=== PATIENT | male | born 1995 | race Two or more races ===

== ENCOUNTER 2020-01-16 12:34 | Emergency (ER) | payer MEDICAID, SELFPAY ==
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
[2020-01-16 13:03] VITALS: BP 148/77; PULSE 82; RESP 16; TEMP 37.2; O2SAT 98; BMI 38.7
== END 2020-01-16 13:53 | disposition home or self-care (01) ==
PROVIDERS: Nurse Practitioner Primary Care; Emergency Provider Emergency Medicine
DX: J06.9 Acute upper respiratory infection, unspecified (principal); R05 Cough; J34.89 Other specified disorders of nose and nasal sinuses; Z20.828 Contact with and (suspected) exposure to other viral communicable diseases; Z79.899 Other long term (current) drug therapy
CPT/HCPCS: 99283; 99284; U0003

== ENCOUNTER 2020-08-05 04:20 | Emergency (ER) | payer MEDICAID, SELFPAY ==
[2020-08-05 04:27] VITALS: BP 131/77; PULSE 110; RESP 20; TEMP 36.8; O2SAT 96; BMI 39.2
[2020-08-05 07:06] VITALS: BP 122/71; PULSE 89; RESP 16; TEMP 37.2; O2SAT 97
[2020-08-05 08:12] VITALS: BP 118/65; PULSE 78; RESP 20; TEMP 37.1; O2SAT 96
[2020-08-05] MEDS: predniSONE 20 MG TABLET 60 MG PO (09:32)
--- NOTE | 2020-08-05 17:15 | ED_ITS ---
HPI - URI/Sore Throat General Chief Complaint: Upper Respiratory Symptoms Stated Complaint: upper respiratory symptoms Time Seen by Provider: 08/05/20 07:56 Source: patient Mode of arrival: ambulatory Limitations: no limitations History of Present Illness HPI Narrative: 25-year-old male who presents emergency department for evaluation of nausea without vomiting and cough. Patient does have history of asthma. Pat ient states that he has had a cough which is productive of thick, yellow sputum with no blood in the sputum. He states that he is having tightness in his chest, he points to the center of his chest and states that the pain is worse with coughing, breathing and movement, the pain is moderate intensity. Patient has felt hot at home but did not take his temperature, he denied chills. States he is having body pain. He denied diarrhea or loss of sense of taste or smell. Patient states he had a COVID-19 infection approximately 1-1/2 months prior. Patient has been using his albuterol inhaler every 2 hours with no relief symptoms. He states that he was on a course of steroids approximately 1 month prior. Related Data Previous Rx's Medication Instructions Recorded albuterol sulfate 2 puff INHALATION Q4-6H PRN #18 g 01/16/20 azithromycin [Zithromax Z-Isidro] 250 mg PO DAILY 5 Days #6 tab 01/16/20 prednisone 60 mg PO DAILY 3 Days #9 tab 01/16/20 albuterol sulfate 2 puff INHALATION Q4-6H PRN #8.5 g 08/05/20 prednisone 60 mg PO DAILY 7 Days #21 tab 08/05/20 Allergies Allergy/AdvReac Type Severity Reaction Status Date / Time No Known Allergies Allergy Verified 08/05/20 04:32 Review of Systems Review of Systems: Yes all other systems are reviewed and are negative [facility] Past Medical History [facility] Narrative: Past medical history : Asthma. Past surgical history: None . Social history: Patient does smoke cigars 2 to 3 times a week, he occasionally drinks alcohol, he denies drug use. Medical History (Updated 08/05/20 @ 09:11 by Juan Miguel Parker MD) No known health problems Social History Social History Alcohol intake: current Alcohol intake frequency: holidays/special occasions only Patient Tobacco Use Status: Never used Tobacco Use of substances other than those prescribed or required for medical reasons: No Advance Directives: No Physical Exam Vital Signs: Vital Signs: Last Vital Signs Temp 98.8 F 08/05/20 08:12 Pulse 78 08/05/20 08:12 Resp 20 08/05/20 08:12 BP 118/65 08/05/20 08:12 Pulse Ox 96 08/05/20 08:12 Body Mass Index 39.2 Const: General: cooperative and healthy appearing Orientation/consciousness: oriented to person and oriented to place Limitations: no limitations HENMT: Head: Yes normal to inspection, Yes normocephalic and Yes atraumatic Ears: external ears normal General nose exam: Normal external nose present Face and sinus: Yes normal facial exam Mouth: Normal oral and palatal mucosa present Throat: Yes posterior oropharynx normal Eyes: General: appearance normal, both eyes and all related structures Alignment and Position: alignment normal Periorbital: periorbital findings normal Eyelids: Yes eyelids normal Conjunctivae: conjunctivae normal Sclerae: sclerae normal Pupils: Equal, round and reactive pupils present Direct Ophthalmoscopy: normal light reflex Neck: Neck: Yes normal visual inspection and Yes supple Chest: Chest palpation & inspection: normal inspection of the chest and normal palpation of entire chest wall Resp: Effort & Inspection: normal respiratory effort and able to speak in complete sentences Auscultation: wheezes expiratory wheezes, inspiratory wheezes and throughout Cardio: Rate: regular rate Rhythm: regular rhythm Heart sounds: S1 normal heart sound present, S2 normal heart sound present and no murmurs GI: Inspection: Yes normal to inspection Palpation (GI): Soft to palpation, nontender and no guarding Auscultation: normal bowel sounds : General: Yes no CVA tenderness Back/Spine/Pelvis: Back: no CVA tenderness Cervical Spine: normal cervical lordosis Thoracic/Lumbar Spine: thoracic and lumbar spine normal to inspection Skin: General skin exam: no rashes or lesions noted Lesions: no lesions Rashes: no rashes Trauma: no lacerations or abrasions Neuro: General: oriented to person and oriented to place Cranial nerves: Yes CN's II-XII intact bilaterally and Yes Equal, round and reactive pupils present Cognition (Neuro): normal cognition Motor exam (neuro): 5/5 motor strength present throughout Extrem: General: Yes normal to inspection and Yes full ROM Psych: Appearance: grossly normal and well kempt Mental Status: mental status grossly normal Speech and movement: Normal speech and movement present Affect: normal affect Attitude: cooperative Thought process: Normal thought process present Thought content: Normal thought content present Insight: Good insight present (Psych) Judgement: Good judgement present (Psych) Course Course Course Narrative: 25-year-old male who presents emergency department for evaluation of shortness of breath, cough and pleuritic chest pain. Physical examination did reveal diffuse wheezing otherwise was unremarkable. Patient's presentation is consistent with an asthma exacerbation. Patient was started on prednisone 60 mg once a day for 7 days. He was given his 1st dose here in the emergency department. The patient was given verbal and printed instructions prior to discharge. The patient was advised to follow-up with their PCP in 2 days and to return to the emergency department if their symptoms get worse or if they develop any new symptoms that are concerning to them Discharge Plan Discharge Clinical Impression: Asthma attack Qualifiers: Asthma severity: moderate Asthma persistence: persistent Qualified Code(s): J45.41 - Moderate persistent asthma with (acute) exacerbation Patient Disposition: Home, Self-Care Instructions: Asthma (ED) Additional Instructions: You received prednisone 60 mg orally here in the emergency department. Take prednisone 20 mg pills, 3 pills once a day for 7 days. Use the albuterol inhaler, 2 puffs every 4 hours as needed for shortness of breath. Follow-up with your doctor in 2 days. Please return to the emergency department if your symptoms get worse or if you develop any symptoms that are concerning to you. Prescriptions: New prednisone 20 mg tablet 60 mg PO DAILY 7 Days Qty: 21 RF: 0 albuterol sulfate 90 mcg/actuation HFA aerosol inhaler 2 puff inhalation Q4-6H PRN (Reason: shortness of breath or wheezing) Qty: 8.5 RF: 0 No Action azithromycin [Zithromax Z-Isidro] 250 mg tablet 250 mg PO DAILY 5 Days Qty: 6 RF: 0 albuterol sulfate 90 mcg/actuation HFA aerosol inhaler 2 puff inhalation Q4-6H PRN (Reason: shortness of breath or wheezing) Qty: 18 RF: 0 prednisone 20 mg tablet 60 mg PO DAILY 3 Days Qty: 9 RF: 0 Stand Alone Forms: Work/School Release Interventions: ED Discharge Assessment Last Done: 08/05/20 09:38 Discharge Date/Time: 08/05/20 09:38
== END 2020-08-05 09:38 | disposition home or self-care (01) ==
PROVIDERS: Emergency Provider Emergency Medicine Emergency Medical Services
DX: J45.41 Moderate persistent asthma with (acute) exacerbation (principal); Z79.899 Other long term (current) drug therapy; Z86.16 Personal history of COVID-19
CPT/HCPCS: 99283; 99284

== ENCOUNTER 2021-09-09 21:34 | Emergency (ER) | payer MEDICAID, SELFPAY ==
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
[2021-09-09 21:44] VITALS: BP 163/120; PULSE 93; O2SAT 97
[2021-09-09 22:48] VITALS: BP 115/67; PULSE 80; RESP 20; TEMP 37; O2SAT 97; BMI 37.9
[2021-09-09] MEDS: Acetaminophen 325 MG TABLET 650 MG PO (22:54)
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
[2021-09-10 07:30] VITALS: BP 123/67; PULSE 63; RESP 18; TEMP 36.4; O2SAT 99
[2021-09-10] MEDS: Ketorolac Tromethamine 15 MG/ML VIAL IM (07:37)
[2021-09-10] MEDS: Lidocaine 4 % Patch ADH..PATCH 1 PATCH TRANSDERMA (08:42)
== END 2021-09-10 08:49 | disposition home or self-care (01) ==
PROVIDERS: Emergency Provider Student in an Organized Health Care Education/Training Program
DX: S20.211A Contusion of right front wall of thorax, initial encounter (principal); R07.81 Pleurodynia; Y04.2XXA Assault by strike against or bumped into by another person, initial encounter; Y93.9 Activity, unspecified; Y92.9 Unspecified place or not applicable; Y99.9 Unspecified external cause status; Z79.899 Other long term (current) drug therapy
CPT/HCPCS: 71046; 71250; 96372; 99283; 99284; J1885

== ENCOUNTER 2021-11-23 09:00 | Emergency (ER) | payer MEDICAID, SELFPAY ==
[2021-11-23 09:03] VITALS: BP 138/86; PULSE 67; RESP 16; O2SAT 97; BMI 35.1
--- NOTE | 2021-11-23 11:52 | ED_ITS ---
HPI - General Adult General Chief complaint: General Medical Stated complaint: pain from waist down Time Seen by Provider: 11/23/21 11:45 Source: patient Mode of arrival: ambulatory Limitations: no limitations History of Present Illness HPI narrative: 26-year-old male came in for evaluation of bilateral lower extremities pain. Patient's symptoms started about 4 days ago, pain or discomfort to bilateral lower extremities and the pelvic area feels like muscular cramps last for about 10 minutes, pain is intermittent comes and goes, pain is diffuse to both lower extremities, no other associated symptoms, no recent strenuous activities reported by the patient. No aggravating factor, no relieving factor. Patient declined any upper respiratory symptoms, no fever, no chills, no CP, no SOB, no abdominal pain. 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 No history of similar symptoms in the past. Related Data Previous Rx's Medication Instructions Recorded albuterol sulfate 90 mcg/actuation 2 puff inhalation Q4-6H PRN 01/16/20 aerosol inhaler shortness of breath or wheezing #18 grams azithromycin 250 mg tablet 250 mg PO DAILY 5 days #6 tabs 01/16/20 (Zithromax Z-Isidro) prednisone 20 mg tablet 60 mg PO DAILY 3 days #9 tabs 01/16/20 albuterol sulfate 90 mcg/actuation 2 puff inhalation Q4-6H PRN 08/05/20 aerosol inhaler shortness of breath or wheezing #8.5 grams prednisone 20 mg tablet 60 mg PO DAILY 7 days #21 tabs 08/05/20 ketorolac 10 mg tablet 10 mg PO Q6H PRN pain 5 days #20 09/10/21 tabs Allergies Allergy/AdvReac Type Severity Reaction Status Date / Time No Known Allergies Allergy Verified 09/09/21 22:48 Review of Systems Review of Systems: All other systems are reviewed and are negative Constitutional: Reports as per HPI and Reports no additional constitutional complaints Eyes: Reports as per HPI and Reports no additional eye complaints Reports system reviewed and no additional complaints, except as documented Cardiovascular: Reports as per HPI and Reports no additional cardiovascular complaints Respiratory: Reports as per HPI and Reports no additional respiratory complaints Gastrointestinal: Reports as per HPI and Reports no additional gastrointestinal complaints Genitourinary: Reports no additional female genitourinary complaints Musculoskeletal: Reports no additional musculoskeletal complaints Skin/Breast: Reports system reviewed and no additional complaints, except as docu Psychiatric: Reports no additional psychiatric complaints Endocrine: Reports no additional endocrine complaints Hematologic/Lymphatic: Reports no additional hematologic/lymphatic complaints Allergic/Immunologic: Reports no additional allergic/immunologic complaints Reports system reviewed and no additional complaints, except as documented and Reports Abnormal speech present [facility] Past Medical History Medical History No known health problems Social History Social History Alcohol intake: current Alcohol intake frequency: holidays/special occasions only Patient Tobacco Use Status: Never used Tobacco Advance Directives: No Advance Directives Information Provided: No Physical Exam ED Vital Signs: Vital Signs - 24 hr 11/23/21 09:03 Pulse Rate 67 Respiratory Rate 16 Blood Pressure 138/86 Pulse Oximetry 97 Oxygen Delivery Method Room Air BMI result Body Mass Index 35.1 Vital signs have been reviewed as appeared to be correct. Blood pressure normal. Heart rate normal. Respiration rate normal. Temperature normal. Oxygen saturation normal. Appearance: Alert. Oriented X3. No acute distress. Head: Normal external exam. Normocephalic. Atraumatic. No [place] signs noted. No raccoon eyes noted Eyes: PERRLA. EOMI. Conjunctiva and sclera normal. Eyelids normal. ENT: TM's Normal. Pharynx normal. Uvula midline. Moist mucous membranes. No trismus noted. No drooling noted. No muffled voice noted. Neck: Normal inspection. Neck supple. FROM. No adenopathy. Thyroid Normal. No m eningeal signs. No neck mass noted. CVS: Normal heart rate and rhythm. Heart sound normal. No murmurs noted. Pulses normal throughout. Respiratory: No respiratory distress. Painless inspiration. Breath sounds normal. No wheezes/rales/rhonchi noted. Chest nontender. No accessory muscle usage noted or decreased air movement noted. Abdomen: Soft and nontender. Bowel sounds normal in all 4 quadrants. No distention noted. No organomegaly noted. No visible injury noted. Back: No CVA tenderness. Full range of motion noted. Skin: Skin warm and dry. Normal skin color. Normal skin turgor. No r ashes/lesions/lacerations noted. Extremities: No lower extremity edema. Extremities exhibit normal range of motion. Extremities nontender. Neuro: Oriented X 3. Cranial nerve exam: II-XII are grossly intact No motor deficit. No sensory deficit. Reflexes normal. Course Course Course Narrative: 26-year-old male came in with bilateral lower extremities pain no weakness, patient has normal intact neuro exam with no weakness or numbness, workup ruled out rhabdomyolysis, DVT with unremarkable CBC and CMP patient feels slightly better with NSAIDs will discharge with recommendation of taking NSAIDs p.r.n. and rest. Patient was instructed to return if worsening of symptoms. Medical Decision Making Lab Data Result diagrams: 11/23/21 12:11/23/21 12: Labs: Lab Results 11/23/21 11/23/21 11/23/21 Range/Units 12: 12: 12:01 WBC 6.4 (4.8-10.8) X10*3/uL RBC 5.08 (4.60-5.80) X10*6/uL Hgb 15.3 (14.0-18.0) g/dl Hct 44.6 (42.0-52.0) % MCV 87.8 (80.0-98.0) fL MCH 30.1 (27.0-33.0) pg MCHC 34.3 (31.0-36.0) g/dl RDW 12.6 (11.0-16.0) % Plt Count 184 (160-400) X10*3/uL MPV 9.4 (9.4-12.4) fL Immature Gran % (Auto) 0.2 (0.0-0.4) % Neut % (Auto) 54.7 (45-73) % Lymph % (Auto) 34.1 (20-40) % [place] % (Auto) 8.0 (2-11) % Eos % (Auto) 2.4 (0-4) % Baso % (Auto) 0.6 (0-2) % Lymph # (Auto) 2.2 (1.2-4.9) X10*3/uL [place] # (Auto) 0.5 (0.1-1.2) X10*3/uL Eos # (Auto) 0.2 (0.0-0.4) X10*3/uL Baso # (Auto) 0.0 (0.0-0.2) X10*3/uL Abs Immat Gran (auto) 0.01 (0.00-0.03) X10*3/uL Absolute Neuts (auto) 3.5 (2.0-8.3) x10*3/uL Absolute Nucleated RBC 0.000 (0.0-0.012) X10*3/uL Nucleated RBC % (auto) 0.0 (0.0-0.2) /100WBC D-Dimer High Sensitivty < 150 NG/ML Sodium 140 (135-145) mmol/L Potassium 4.4 (3.3-5.1) mmol/L Chloride 104 (96-108) mmol/L Carbon Dioxide 26 (22-29) mmol/L Anion Gap 14 (12-20) BUN 17 H (9-16) mg/dL Creatinine 1.04 (0.5-1.4) mg/dL Estim Creat Clear Calc 124.0 Estimated GFR > 60 Random Glucose 100 (60-115) mg/dL Calcium 9.4 (8.4-10.2) mg/dL Total Bilirubin 0.7 (0.0-1.0) mg/dL Direct Bilirubin 0.2 (0.0-0.5) mg/dL AST 22 (5-37) U/L ALT 32 (0-40) U/L Alkaline Phosphatase 67 (39-117) U/L Total Creatine Kinase 166 (38-174) U/L Total Protein 7.2 (6.5-8.0) g/dL Albumin 4.3 (3.5-5.0) g/dL Lipase 14 (8-78) U/L Urine Color Urine Appearance Urine pH (5.0-9.0) Ur Specific [place] (1.005-1.025) Urine Protein (Neg-Trace) mg/dL Urine Glucose (UA) (Negative) mg/dL Urine Ketones (Negative) mg/dL Urine Blood (Negative) Urine Nitrite (Negative) Ur Leukocyte Esterase (Negative) Urine RBC (0-2) /HPF Urine WBC (0-5) /HPF Ur Squamous Epith Cells (0-2) /HPF Urine Bacteria (None Seen) Hyaline Casts (0-2) /LPF 11/23/21 Range/Units 12:10 WBC (4.8-10.8) X10*3/uL RBC (4.60-5.80) X10*6/uL Hgb (14.0-18.0) g/dl Hct (42.0-52.0) % MCV (80.0-98.0) fL MCH (27.0-33.0) pg MCHC (31.0-36.0) g/dl RDW (11.0-16.0) % Plt Count (160-400) X10*3/uL MPV (9.4-12.4) fL Immature Gran % (Auto) (0.0-0.4) % Neut % (Auto) (45-73) % Lymph % (Auto) (20-40) % [place] % (Auto) (2-11) % Eos % (Auto) (0-4) % Baso % (Auto) (0-2) % Lymph # (Auto) (1.2-4.9) X10*3/uL [place] # (Auto) (0.1-1.2) X10*3/uL Eos # (Auto) (0.0-0.4) X10*3/uL Baso # (Auto) (0.0-0.2) X10*3/uL Abs Immat Gran (auto) (0.00-0.03) X10*3/uL Absolute Neuts (auto) (2.0-8.3) x10*3/uL Absolute Nucleated RBC (0.0-0.012) X10*3/uL Nucleated RBC % (auto) (0.0-0.2) /100WBC D-Dimer High Sensitivty NG/ML Sodium (135-145) mmol/L Potassium (3.3-5.1) mmol/L Chloride (96-108) mmol/L Carbon Dioxide (22-29) mmol/L Anion Gap (12-20) BUN (9-16) mg/dL Creatinine (0.5-1.4) mg/dL Estim Creat Clear Calc Estimated GFR Random Glucose (60-115) mg/dL Calcium (8.4-10.2) mg/dL Total Bilirubin (0.0-1.0) mg/dL Direct Bilirubin (0.0-0.5) mg/dL AST (5-37) U/L ALT (0-40) U/L Alkaline Phosphatase (39-117) U/L Total Creatine Kinase (38-174) U/L Total Protein (6.5-8.0) g/dL Albumin (3.5-5.0) g/dL Lipase (8-78) U/L Urine Color Yellow Urine Appearance Clear Urine pH 6.0 (5.0-9.0) Ur Specific [place] 1.015 (1.005-1.025) Urine Protein Negative (Neg-Trace) mg/dL Urine Glucose (UA) Negative (Negative) mg/dL Urine Ketones Negative (Negative) mg/dL Urine Blood Negative (Negative) Urine Nitrite Negative (Negative) Ur Leukocyte Esterase Trace H (Negative) Urine RBC 0-2 (0-2) /HPF Urine WBC 0-5 (0-5) /HPF Ur Squamous Epith Cells 0-2 (0-2) /HPF Urine Bacteria None Seen (None Seen) Hyaline Casts 0-2 (0-2) /LPF Discharge Plan Discharge Clinical Impression: Myofascial pain syndrome Patient Disposition: Home, Self-Care Instructions: Musculoskeletal Pain (ED) Prescriptions: No Action azithromycin [Zithromax Z-Isidro] 250 mg tablet 250 mg PO DAILY 5 Days Qty: 6 0RF albuterol sulfate 90 mcg/actuation HFA aerosol inhaler 2 puff inhalation Q4-6H PRN (Reason: shortness of breath or wheezing) Qty: 18 0RF prednisone 20 mg tablet 60 mg PO DAILY 3 Days Qty: 9 0RF prednisone 20 mg tablet 60 mg PO DAILY 7 Days Qty: 21 0RF albuterol sulfate 90 mcg/actuation HFA aerosol inhaler 2 puff inhalation Q4-6H PRN (Reason: shortness of breath or wheezing) Qty: 8.5 0RF ketorolac 10 mg tablet 10 mg PO Q6H PRN (Reason: pain) 5 Days Qty: 20 0RF Rx Instructions: Patient received Toradol in the emergency room Referrals: Physician,None [Primary Care Provider] - Stand Alone Forms: Work/School Release
[2021-11-23] MEDS: Ibuprofen 600 MG TABLET PO (12:02)
[2021-11-23 12:06] LABS: MANUAL DIFF FLAG NO
[2021-11-23 12:08] LABS: Basophils Percent Auto 0.6 % (0-2); Eosinophils Absolute Auto 0.2 X10*3/uL (0.0-0.4); Eosinophils Percent Auto 2.4 % (0-4); Hematocrit 44.6 % (42.0-52.0); Hemoglobin 15.3 g/dl (14.0-18.0); Imm Gran Abs Auto 0.01 X10*3/uL (0.00-0.03); Imm Gran Pct Auto 0.2 % (0.0-0.4); Lymphocytes Absolute Auto 2.2 X10*3/uL (1.2-4.9); Lymphocytes Percent Auto 34.1 % (20-40); Mean Corpuscular HGB Conc 34.3 g/dl (31.0-36.0); Mean Corpuscular Hemoglobin 30.1 pg (27.0-33.0); Mean Corpuscular Volume 87.8 fL (80.0-98.0); Mean Platelet Volume 9.4 fL (9.4-12.4); Monocytes Absolute Auto 0.5 X10*3/uL (0.1-1.2); Neutrophils Absolute Auto 3.5 x10*3/uL (2.0-8.3); Neutrophils Percent Auto 54.7 % (45-73); Platelet Count 184 X10*3/uL (160-400); Red Blood Count 5.08 X10*6/uL (4.60-5.80); Red Cell Distribution Width 12.6 % (11.0-16.0); White Blood Count 6.4 X10*3/uL (4.8-10.8)
[2021-11-23 12:18] LABS: D Dimer High Sensitivity < 150 NG/ML
[2021-11-23 12:21] LABS: Appearance Urine Clear; Color Urine Yellow; Glucose Urine UA Negative (Negative); Leukocyte Esterase Urine Trace (Negative); Nitrite Urine Negative (Negative); Specific Gravity - Urine 1.015 (1.005-1.025); UMIC TRIGGER UACC YES; Urine Blood Negative (Negative); Urine Ketones Negative (Negative); Urine Protein Negative (Neg-Trace)
[2021-11-23 12:26] LABS: Bacteria Urine None Seen (None Seen); Hyaline Casts Urine 0-2 /LPF (0-2); RBC Urine 0-2 /HPF (0-2); Squamous Epithelial Cell Urine 0-2 /HPF (0-2); WBC Urine 0-5 /HPF (0-5)
[2021-11-23 12:28] LABS: Alanine Aminotransferase 32 U/L (0-40); Albumin Level 4.3 g/dL (3.5-5.0); Alkaline Phosphatase 67 U/L (39-117); Anion Gap 14 (12-20); Aspartate Amino Transferase 22 U/L (5-37); Bilirubin Direct 0.2 mg/dL (0.0-0.5); Bilirubin Total 0.7 mg/dL (0.0-1.0); Blood Urea Nitrogen 17 mg/dL (9-16); Calcium 9.4 mg/dL (8.4-10.2); Carbon Dioxide 26 mmol/L (22-29); Chloride 104 mmol/L (96-108); Estimated Glomerular Filt Rate > 60; Glucose Random 100 mg/dL (60-115); Lipase 14 U/L (8-78); Potassium 4.4 mmol/L (3.3-5.1); Sodium 140 mmol/L (135-145); Total Protein 7.2 g/dL (6.5-8.0)
== END 2021-11-23 13:59 | disposition home or self-care (01) ==
PROVIDERS: Emergency Provider Emergency Medicine
DX: G89.4 Chronic pain syndrome (principal); M79.662 Pain in left lower leg; M79.661 Pain in right lower leg
CPT/HCPCS: 36415; 80048; 80076; 81001; 82550; 83690; 85025; 85379; 99283; 99284

== ENCOUNTER 2022-08-23 12:52 | Emergency (ER) | payer MEDICAID, SELFPAY ==
--- NOTE | ~2022-08-23 | CT_ITS ---
EXAMINATION: CT ABDOMEN AND PELVIS WITH CONTRAST CLINICAL INFORMATION: Right flank/lower quadrant pain COMPARISON: None available. TECHNIQUE: Multidetector volumetric images were obtained from the superior aspect of the liver through the pubic symphysis following administration 85 mL of Omnipaque 350 intravenous contrast. Sagittal and coronal reformatted images were obtained on the technologist's workstation. Oral contrast: No This CT examination was performed using dose optimization techniques as appropriate, variously including the following: *Automated exposure control *Adjustment of mA and/or kV according to patient size (this includes techniques or standardized protocols for targeted exams where dose is matched to indication/reason for exam; i.e. extremities or head) *Use of iterative reconstruction technique DLP: 1002 mGy-cm FINDINGS: LUNG BASES: The visualized lung bases are unremarkable. LIVER, GALLBLADDER, AND BILIARY TREE: The liver is normal in size, shape, and attenuation. Tiny hypodensity in the left lobe is too small to characterize. No biliary ductal dilatation is present. The gallbladder is unremarkable with no evidence of radiopaque gallstones, gallbladder wall thickening, or obvious pericholecystic inflammatory changes. PANCREAS: Unremarkable. SPLEEN: Unremarkable. ADRENAL GLANDS: Unremarkable. KIDNEYS AND URETERS: Bilateral nephrograms are symmetric. No hydronephrosis or obstructing calculus identified. BLADDER: Minimally distended and grossly unremarkable. GASTROINTESTINAL TRACT: There is prominent submucosal fat within some segments of the colon, which can be seen as sequelae of prior inflammation. No convincing evidence for acute inflammation. No evidence of bowel obstruction. The appendix is unremarkable. No free fluid or free air is seen. ABDOMINAL WALL: No significant hernia is appreciated. LYMPH NODES: Normal. VASCULAR: Unremarkable. PELVIC VISCERA: Unremarkable. OSSEOUS STRUCTURES: Unremarkable. CT/CT abdomen pelvis w IV con IMPRESSION: No acute findings identified in the abdomen/pelvis.
[2022-08-23 12:54] VITALS: BP 146/92; PULSE 77; RESP 17; TEMP 36.6; O2SAT 99; BMI 43.0
--- NOTE | 2022-08-23 12:54 | ED.GENADULT ---
HPI - General Adult General Chief complaint: Abdominal Pain Stated complaint: Headache/Abd pain/Disorientated Time Seen by Provider: 08/23/22 23:05 Source: patient Mode of arrival: ambulatory History of Present Illness HPI narrative: 27-year-old male who reports epigastric discomfort and right lower chest pain for 3 days and reports black diarrhea without hematemesis. 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 He otherwise denies any fever, chills, actual vomiting or urinary symptoms. Related Data Previous Rx's Medication Instructions Recorded albuterol sulfate 90 mcg/actuation 2 puff inhalation Q4-6H PRN 01/16/20 aerosol inhaler shortness of breath or wheezing #18 grams azithromycin 250 mg tablet 250 mg PO DAILY 5 days #6 tabs 01/16/20 (Zithromax Z-Isidro) prednisone 20 mg tablet 60 mg PO DAILY 3 days #9 tabs 01/16/20 albuterol sulfate 90 mcg/actuation 2 puff inhalation Q4-6H PRN 08/05/20 aerosol inhaler shortness of breath or wheezing #8.5 grams prednisone 20 mg tablet 60 mg PO DAILY 7 days #21 tabs 08/05/20 ketorolac 10 mg tablet 10 mg PO Q6H PRN pain 5 days #20 09/10/21 tabs omeprazole 40 mg capsule,delayed 40 mg PO DAILY #30 caps 08/24/22 release Allergies Allergy/AdvReac Type Severity Reaction Status Date / Time No Known Allergies Allergy Verified 08/23/22 12:54 Review of Systems Review of Systems: Pertinent positives and negatives as stated in HPI [facility] Past Medical History Source: nursing notes reviewed Medical History No known health problems Social History Social History Alcohol intake: current Alcohol intake frequency: holidays/special occasions only Patient Tobacco Use Status: Never used Tobacco Advance Directives: No Advance Directives Information Provided: Yes Physical Exam ED Vital Signs: Vital Signs - 24 hr 08/23/22 12:54 08/23/22 22:00 08/24/22 01:07 Temperature 98 F 97.8 F 97.4 F Pulse Rate 77 88 82 Respiratory Rate 17 16 18 Blood Pressure 146/92 H 141/88 H 116/69 Pulse Oximetry 99 98 98 Oxygen Delivery Method Room Air Room Air Room Air BMI result Body Mass Index 43.0 VITAL SIGNS: Reviewed. GENERAL: Well developed, well nourished, in no acute distress. HEAD: Normocephalic/atraumatic EYES: PERRLA, EOMI EARS: Ext canals without abnormality NOSE: Nares patent bilateral OROPHARYNX: no oral lesions noted, posterior pharynx clear NECK: Supple, no adenopathy LUNGS: Normal breath sounds. No adventitious sounds or accessory muscle use. SpO2<98> CARDIOVASCULAR: Regular rate and rhythm without noted murmurs ABDOMEN: Soft, no right upper quadrant pain, Newell's is negative, some pain on palpation the right lower quadrant but maximal in mid lower abdomen/suprapubic, non-distended with bowel sounds. MUSCULOSKELETAL: No tenderness, deformities, or effusions noted on gross inspection. EXTREMITIES: No cyanosis, clubbing or edema. SKIN: Inspection of the skin reveals no rashes NEUROLOGIC: Alert and oriented x 4. Strength and sensation to light touch were grossly intact x 4. Course Course Course Narrative: This is an RME: Additional HPI, ROS, PE not included below will be deferred to primary provider. Patient is a 27 year old male presenting with right sided chest pain, epigastric abdominal pain, and maliase. Patient reports melena. Patient reports spilling chemicals (termidor) on himself the other day at work and did not get to wash it off right away and is unsure if this contributed. patient denies vomiting, palpitations, shortness of breath, numbness, tingling. Plan: labs Medications Administered Discontinued Medications Generic Name Dose Route Start Last Admin Trade Name Freq PRN Reason Stop Dose Admin Sodium Chloride 1,000 mls @ 999 mls/hr 08/23/22 23:45 08/23/22 23:55 Ns IV 08/24/22 00:45 999 mls/hr .Q1H1M CONSTANTIN Administration Iohexol 85 ml 08/24/22 00:30 08/24/22 00:30 Iohexol 350 Mg/Ml 100 Ml Infus..Btl IV 08/24/22 00:31 85 ml ONCE ONE Administration Medical Decision Making Medical Decision Making [facility] Narrative: 27-year-old male with history and clinical presentation, DDX: Cholecystitis, gastritis, appendicitis, renal colic, UTI I reviewed all investigations and the hematologic indices are negative for any evidence of infection, anemia, thrombocytopenia. Chemistries are overall grossly within normal limits there is a stable BUN elevation a slight bump been T bili which is nonspecific. Troponins are undetectable and CT scan is negative for any intra-abdominal pathologies. Suspect that patient may have gastritis and would likely benefit from further primary care provider and Gastroenterology evaluation. He received Carafate here and is otherwise discharged on medication to cover gastritis and given strict precautions regarding any further NSAID use, chest x-ray that does not show pneumonia. Differential Diagnosis Differential Diagnoses: The differential diagnosis associated with the presentation includes Please see the discussion above Admission/Observation Consideration of admission/observation: Escalation of care including admission/observation considered Lab Data [facility] Lab Attestation statement: I reviewed the patient's lab results. Please see the discussion above 08/23/22 13:22 08/23/22 13:22 Labs: Lab Results 08/23/22 08/23/22 08/23/22 Range/Units 13:22 13:22 13:22 WBC 7.2 (4.8-10.8) X10*3/uL RBC 5.54 (4.60-5.80) X10*6/uL Hgb 16.4 (14.0-18.0) g/dl Hct 47.5 (42.0-52.0) % MCV 85.7 (80.0-98.0) fL MCH 29.6 (27.0-33.0) pg MCHC 34.5 (31.0-36.0) g/dl RDW 12.4 (11.0-16.0) % Plt Count 235 D (160-400) X10*3/uL MPV 9.4 (9.4-12.4) fL Immature Gran % (Auto) 0.3 (0.0-0.4) % Neut % (Auto) 59.0 (45-73) % Lymph % (Auto) 29.9 (20-40) % Ralls % (Auto) 8.4 (2-11) % Eos % (Auto) 1.7 (0-4) % Baso % (Auto) 0.7 (0-2) % Lymph # (Auto) 2.2 (1.2-4.9) X10*3/uL Ralls # (Auto) 0.6 (0.1-1.2) X10*3/uL Eos # (Auto) 0.1 (0.0-0.4) X10*3/uL Baso # (Auto) 0.1 (0.0-0.2) X10*3/uL Abs Immat Gran (auto) 0.02 (0.00-0.03) X10*3/uL Absolute Neuts (auto) 4.3 (2.0-8.3) x10*3/uL Absolute Nucleated RBC 0.000 (0.0-0.012) X10*3/uL Nucleated RBC % (auto) 0.0 (0.0-0.2) /100WBC Sodium 138 (135-145) mmol/L Potassium 4.8 (3.3-5.1) mmol/L Chloride 104 (96-108) mmol/L Carbon Dioxide 25 (22-29) mmol/L Anion Gap 14 (12-20) BUN 17 H (9-16) mg/dL Creatinine 1.20 (0.5-1.4) mg/dL Estim Creat Clear Calc 118.6 Estimated GFR > 60 Random Glucose 98 (60-115) mg/dL Calcium 9.6 (8.4-10.2) mg/dL Magnesium 2.2 (1.6-2.6) mg/dL Total Bilirubin 1.1 H (0.0-1.0) mg/dL AST 34 (5-37) U/L ALT 62 H (0-40) U/L Alkaline Phosphatase 68 (39-117) U/L Troponin I High Sens < 2.7 (<3.5-35.0) ng/L Total Protein 7.9 (6.5-8.0) g/dL Albumin 4.4 (3.5-5.0) g/dL Lipase 10 (8-78) U/L Urine Color Urine Appearance Urine pH (5.0-9.0) Ur Specific [place] (1.005-1.025) Urine Protein (Neg-Trace) mg/dL Urine Glucose (UA) (Negative) mg/dL Urine Ketones (Negative) mg/dL Urine Blood (Negative) Urine Nitrite (Negative) Ur Leukocyte Esterase (Negative) COVID-19 ([facility]) (Negative) COVID-19 Clin Com 08/23/22 08/24/22 Range/Units 13:22 00:01 WBC (4.8-10.8) X10*3/uL RBC (4.60-5.80) X10*6/uL Hgb (14.0-18.0) g/dl Hct (42.0-52.0) % MCV (80.0-98.0) fL MCH (27.0-33.0) pg MCHC (31.0-36.0) g/dl RDW (11.0-16.0) % Plt Count (160-400) X10*3/uL MPV (9.4-12.4) fL Immature Gran % (Auto) (0.0-0.4) % Neut % (Auto) (45-73) % Lymph % (Auto) (20-40) % Ralls % (Auto) (2-11) % Eos % (Auto) (0-4) % Baso % (Auto) (0-2) % Lymph # (Auto) (1.2-4.9) X10*3/uL Ralls # (Auto) (0.1-1.2) X10*3/uL Eos # (Auto) (0.0-0.4) X10*3/uL Baso # (Auto) (0.0-0.2) X10*3/uL Abs Immat Gran (auto) (0.00-0.03) X10*3/uL Absolute Neuts (auto) (2.0-8.3) x10*3/uL Absolute Nucleated RBC (0.0-0.012) X10*3/uL Nucleated RBC % (auto) (0.0-0.2) /100WBC Sodium (135-145) mmol/L Potassium (3.3-5.1) mmol/L Chloride (96-108) mmol/L Carbon Dioxide (22-29) mmol/L Anion Gap (12-20) BUN (9-16) mg/dL Creatinine (0.5-1.4) mg/dL Estim Creat Clear Calc Estimated GFR Random Glucose (60-115) mg/dL Calcium (8.4-10.2) mg/dL Magnesium (1.6-2.6) mg/dL Total Bilirubin (0.0-1.0) mg/dL AST (5-37) U/L ALT (0-40) U/L Alkaline Phosphatase (39-117) U/L Troponin I High Sens (<3.5-35.0) ng/L Total Protein (6.5-8.0) g/dL Albumin (3.5-5.0) g/dL Lipase (8-78) U/L Urine Color Yellow Urine Appearance Clear Urine pH 5.5 (5.0-9.0) Ur Specific [place] 1.025 (1.005-1.025) Urine Protein Negative (Neg-Trace) mg/dL Urine Glucose (UA) Negative (Negative) mg/dL Urine Ketones Negative (Negative) mg/dL Urine Blood Negative (Negative) Urine Nitrite Negative (Negative) Ur Leukocyte Esterase Negative (Negative) COVID-19 ([facility]) Negative (Negative) COVID-19 Clin Com See Note Independent Interpretation I performed an independent interpretation of an: EKG Interpretation: Normal sinus rhythm, HR -82, no STEMI, OK/QRS/QTC is within normal limits. Radiology Impression Radiologist Impression: No pneumonia, no intra-abdominal pathology, otherwise my interpretation is in agreement with radiology's impression. External Record Review External record reviewed: Outpatient record and Prior outpatient labs Discharge Plan Discharge Clinical Impression: Gastritis Patient Disposition: Home, Self-Care Instructions: Gastritis (ED), Diet for Stomach Ulcers and Gastritis (ED) Additional Instructions: 1. Avoid all NSAIDs: Ibuprofen, Motrin, Aleve, Naprosyn, ketorolac/Toradol, aspirin, Excedrin 2. You are going to be started on omeprazole and should take this daily. 3. Follow-up with your primary care provider for re-evaluation further outpatient management. Return to the ER for any worsening symptoms. Prescriptions: New omeprazole 40 mg capsule,delayed release(DR/EC) 40 mg PO DAILY Qty: 30 0RF No Action azithromycin [Zithromax Z-Isidro] 250 mg tablet 250 mg PO DAILY 5 Days Qty: 6 0RF albuterol sulfate 90 mcg/actuation HFA aerosol inhaler 2 puff inhalation Q4-6H PRN (Reason: shortness of breath or wheezing) Qty: 18 0RF prednisone 20 mg tablet 60 mg PO DAILY 3 Days Qty: 9 0RF prednisone 20 mg tablet 60 mg PO DAILY 7 Days Qty: 21 0RF albuterol sulfate 90 mcg/actuation HFA aerosol inhaler 2 puff inhalation Q4-6H PRN (Reason: shortness of breath or wheezing) Qty: 8.5 0RF ketorolac 10 mg tablet 10 mg PO Q6H PRN (Reason: pain) 5 Days Qty: 20 0RF Rx Instructions: Patient received Toradol in the emergency room
[2022-08-23 13:44] LABS: Alanine Aminotransferase 62 U/L (0-40); Albumin Level 4.4 g/dL (3.5-5.0); Alkaline Phosphatase 68 U/L (39-117); Anion Gap 14 (12-20); Aspartate Amino Transferase 34 U/L (5-37); Bilirubin Total 1.1 mg/dL (0.0-1.0); Blood Urea Nitrogen 17 mg/dL (9-16); Calcium 9.6 mg/dL (8.4-10.2); Carbon Dioxide 25 mmol/L (22-29); Chloride 104 mmol/L (96-108); Creatinine Clr Calc Pharmacy 118.6; Estimated Glomerular Filt Rate > 60; Glucose Random 98 mg/dL (60-115); Lipase 10 U/L (8-78); Magnesium 2.2 mg/dL (1.6-2.6); Potassium 4.8 mmol/L (3.3-5.1); Sodium 138 mmol/L (135-145); Total Protein 7.9 g/dL (6.5-8.0)
[2022-08-23 22:00] VITALS: BP 141/88; PULSE 88; RESP 16; TEMP 36.6; O2SAT 98
[2022-08-23] MEDS: 0.9 % Sodium Chloride 1,000 ML 999 ML IV (23:55)
[2022-08-24 00:13] LABS: Appearance Urine Clear; Color Urine Yellow; Glucose Urine UA Negative (Negative); Leukocyte Esterase Urine Negative (Negative); Nitrite Urine Negative (Negative); PH 5.5 (5.0-9.0); Specific Gravity - Urine 1.025 (1.005-1.025); Urine Blood Negative (Negative); Urine Ketones Negative (Negative); Urine Protein Negative (Neg-Trace)
[2022-08-24] MEDS: iohexoL 350 MG/ML 100 ML INFUS..BTL 85 ML IV (00:30)
[2022-08-24 01:07] VITALS: BP 116/69; PULSE 82; RESP 18; TEMP 36.3; O2SAT 98
[2022-08-24 01:58] VITALS: BP 111/56; PULSE 86; RESP 18; TEMP 36.9; O2SAT 98
[2022-08-24] MEDS: Sucralfate Oral Suspension 1 GM/10 ML ORAL.SUSP PO (02:01)
--- NOTE | 2022-08-24 02:04 | PC.NURSE ---
Pt a&o, no sob or chest pain, Review discharge instructions with pt, pt verbalized understanding. No sign of distress.
== END 2022-08-24 02:07 | disposition home or self-care (01) ==
PROVIDERS: Physician Assistant; Emergency Provider Student in an Organized Health Care Education/Training Program
DX: K29.70 Gastritis, unspecified, without bleeding (principal); R10.31 Right lower quadrant pain; R51.9 Headache, unspecified; Z20.822 Contact with and (suspected) exposure to COVID-19; Z20.828 Contact with and (suspected) exposure to other viral communicable diseases; Z79.899 Other long term (current) drug therapy
CPT/HCPCS: 71045; 74177; 80053; 81003; 83690; 83735; 84484; 85025; 87635; 93005; 96360; 96361; 99284; Q9967

== ENCOUNTER → 2022-08-23 12:54 | Outpatient (BNV) | payer MEDICAID, SELFPAY | PROVIDERS: Visit Provider Internal Medicine Cardiovascular Disease | DX: R07.9 Chest pain, unspecified (principal) | CPT/HCPCS: 93010 ==

== ENCOUNTER 2024-03-23 18:09 | Emergency (ER) | payer MEDICAID, SELFPAY ==
--- NOTE | ~2024-03-23 | XR_ITS ---
CLINICAL HISTORY: cough 1 view chest x-ray Comparison: Chest x-ray from 08/23/2022 Findings: Low lung volumes with mild atelectasis. No lobar consolidation, pneumothorax, or pleural effusion. Imaged mediastinum and osseous structures appear unchanged. IMPRESSION: No consolidation and no significant change compared to 08/23/2022. This document has been electronically signed by: Rodney Pozo MD on 03/23/2024 19:15:28
[2024-03-23 18:23] VITALS: BP 110/74; PULSE 117; RESP 20; TEMP 39.6; O2SAT 96; BMI 43.5
--- NOTE | 2024-03-23 18:28 | ED.GENADULT ---
HPI - General Adult General Chief complaint: Upper Respiratory Symptoms Stated complaint: Dizzy, Chills Time Seen by Provider: 03/24/24 00:31 Source: patient Mode of arrival: ambulatory Limitations: no limitations History of Present Illness ED Provider: Dr. Janina Stoddard HPI narrative: Patient comes to the emergency room complaining of cough, fatigue, generalized malaise for 2 days. Patient states that his daughter at home has a fever. Patient denies nausea vomiting diarrhea. Related Data Previous Rx's ?Medication ?Instructions ?Recorded albuterol sulfate 90 mcg/actuation 2 puff inhalation Q4-6H PRN 01/16/20 aerosol inhaler shortness of breath or wheezing #18 grams azithromycin 250 mg tablet 250 mg PO DAILY 5 days #6 tabs 01/16/20 (Zithromax Z-Isidro) prednisone 20 mg tablet 60 mg (3 x 20 mg) PO DAILY 3 days 01/16/20 #9 tabs albuterol sulfate 90 mcg/actuation 2 puff inhalation Q4-6H PRN 08/05/20 aerosol inhaler shortness of breath or wheezing #8.5 grams prednisone 20 mg tablet 60 mg (3 x 20 mg) PO DAILY 7 days 08/05/20 #21 tabs ketorolac 10 mg tablet 10 mg PO Q6H PRN pain 5 days #20 09/10/21 tabs omeprazole 40 mg capsule,delayed 40 mg PO DAILY #90 caps 08/25/22 release acetaminophen 500 mg tablet 500 mg PO Q6H PRN fever or pain 03/24/24 #20 tabs ibuprofen 600 mg tablet 600 mg PO Q8H PRN fever or pain 03/24/24 #20 tabs oseltamivir 75 mg capsule (Tamiflu) 75 mg PO DAILY #9 caps 03/24/24 Allergies Allergy/AdvReac Type Severity Reaction Status Date / Time No Known Allergies Allergy Verified 03/23/24 18:24 Review of Systems Review of Systems: Constitutional : No Weight loss, complaining of fever and chills, fatigue and generalized malaise ENT/Mouth : No Hearing loss, No Ear Pain, No Nasal Congestion, No Sinus Pain, No Hoarseness, No sore throat, No Rhinorrhea, No Swallowing Difficulty Eyes: No Eye Pain, No Swelling, No Redness, No Foreign Body, No Discharge, No Vision Changes Cardiovascular : No Chest Pain, No SOB, No Dyspnea on Exertion, No Orthopnea, No Edema, No Palpitations Respiratory : Complaining of dry cough, No Wheezing, No Smoke Exposure, No Dyspnea Gastrointestinal : No Nausea, No Vomiting, No Diarrhea, No Constipation, No abdominal Pain, No Hematochezia, No Melena Genitourinary : no irregular bleeding, No Dysuria, No Urinary Frequency, No Hematuria, No Urinary Incontinence, No Urgency, No Flank Pain, No Urinary Flow Changes, No Hesitancy Musculoskeletal : No joint pain, No Myalgias, No Joint Swelling Skin : No Skin Lesions, No rash Neuro : No Weakness, No Numbness, No Paresthesias, No Loss of Consciousness, No Dizziness, No Headache Psych : No Anxiety/Panic, No Depression, No SI/HI/AH/VH, No Social Issues, Heme/Lymph: No Bruising, No Bleeding,No Lymphadenopathy Endocrine : No Polyuria, No Polydipsia, No Temperature Intolerance [facility] Past Medical History Medical History No known health problems Social History Social History Alcohol intake: current Alcohol intake frequency: holidays/special occasions only Patient Tobacco Use Status: Never used Tobacco Advance Directives: No Advance Directives Information Provided: Yes Do you have a plan to hurt others: No Plan Physical Exam ED Vital Signs: Vital Signs - 24 hr 03/23/24 18:23 Temperature 103.2 F H Pulse Rate 117 H Respiratory Rate 20 Blood Pressure 110/74 Pulse Oximetry 96 Oxygen Delivery Method Room Air BMI result Body Mass Index 43.5 Const Other: Appearance: Alert. Oriented X3. No acute distress. Eyes: Pupils equal, round and reactive to light. ENT: Pharynx normal. Neck: Normal inspection. Neck supple. No lymph nodes noted. No crepitus CVS: Normal heart rate and rhythm. Pulses normal. Normal S1 and S2 Respiratory: No respiratory distress. Breath sounds normal. No Wheezing. No rales Abdomen: Soft and nontender. No rigidity. No distention. Skin: Skin warm and clammy. Normal skin color. Normal skin turgor. Extremities: No lower extremity edema. No Lacerations. No Rash Neuro: Oriented X 3. No motor deficit. No sensory deficit. Moving all extremities. No slurred speech. CN 2 through 12 grossly intact Psych: calm, cooperative, normal affect Course Course Course Narrative: This is a rapid medical exam performed by Nicole Silva PA-C. The patient is a 28-year-old male with a history of asthma who presents with cough and cold symptoms x2 days. Associated dizziness body aches and fevers. On exam his lungs are clear no wheezing. We will order viral panel, chest x-ray. The patient is stable and can return to the waiting room pending his full medical assessment. He was also noted to have a fever, we are giving 975 mg of Tylenol. Medications Administered Discontinued Medications Generic Name Dose Route Start Last Admin Trade Name Freq PRN Reason Stop Dose Admin Acetaminophen 975 mg 03/23/24 18:27 03/23/24 18:31 Acetaminophen 325 Mg Tablet PO 03/23/24 18:28 975 mg ONCE ONE Administration Medical Decision Making Medical Decision Making [facility] Narrative: I discussed with the patient that he tested positive for influenza A. Patient has been symptomatic for 48 hours. Still in the window of treatment for Tamiflu. Patient states that he will like to go ahead and try the treatment with the antiviral. Patient was given the 1st dose of Tamiflu, ibuprofen and acetaminophen. Chest x-ray negative for COVID Differential Diagnosis Differential Diagnoses: The differential diagnosis associated with the presentation includes (Viral syndrome, pneumonia) Lab Data [facility] Lab Attestation statement: I reviewed the patient's lab results. Labs: Lab Results 03/23/24 Range/Units 18:48 Influenza Type A (PCR) POSITIVE A (Negative) Influenza Type B (PCR) NEGATIVE (Negative) RSV RNA Qual (PCR) NEGATIVE (Negative) SARS-CoV-2 RNA (RT-PCR) NEGATIVE (Negative) Independent Interpretation I performed an independent interpretation of an: Plain X-Ray Radiology Impression Discussion of test interpretation with radiology: I have reviewed the radiologist's reading. Radiologist Impression: Low lung volumes with mild atelectasis. No lobar consolidation, pneumothorax, or pleural effusion. Imaged mediastinum and osseous structures appear unchanged. IMPRESSION: No consolidation and no significant change compared to 08/23/2022. Discharge Plan Discharge Clinical Impression: Influenza A Patient Disposition: Home, Self-Care Instructions: Influenza (ED) Additional Instructions: Please follow-up with your primary care physician tomorrow. If you have any worsening or new symptoms, please return to the emergency room or call 911 Prescriptions: New oseltamivir [Tamiflu] 75 mg capsule 75 mg PO DAILY Qty: 9 0RF ibuprofen 600 mg tablet 600 mg PO Q8H PRN (Reason: fever or pain) Qty: 20 0RF acetaminophen 500 mg tablet 500 mg PO Q6H PRN (Reason: fever or pain) Qty: 20 0RF No Action azithromycin [Zithromax Z-Isidro] 250 mg tablet 250 mg PO DAILY 5 Days Qty: 6 0RF albuterol sulfate 90 mcg/actuation HFA aerosol inhaler 2 puff inhalation Q4-6H PRN (Reason: shortness of breath or wheezing) Qty: 18 0RF prednisone 20 mg tablet 60 mg PO DAILY 3 Days Qty: 9 0RF prednisone 20 mg tablet 60 mg PO DAILY 7 Days Qty: 21 0RF albuterol sulfate 90 mcg/actuation HFA aerosol inhaler 2 puff inhalation Q4-6H PRN (Reason: shortness of breath or wheezing) Qty: 8.5 0RF ketorolac 10 mg tablet 10 mg PO Q6H PRN (Reason: pain) 5 Days Qty: 20 0RF Rx Instructions: Patient received Toradol in the emergency room omeprazole 40 mg capsule,delayed release(DR/EC) 40 mg PO DAILY Qty: 90 0RF Stand Alone Forms: Work/School Release Print Language: Welsh
[2024-03-23] MEDS: Acetaminophen 325 MG TABLET 975 MG PO (18:31)
[2024-03-23 19:29] LABS: Influenza A PCR POSITIVE (Negative); Influenza B PCR NEGATIVE (Negative); Resp Syncy Virus RNA Qual PCR NEGATIVE (Negative); SARS COV2 PCR INHOUSE NEGATIVE (Negative)
[2024-03-24] MEDS: Oseltamivir Phosphate 75 MG CAPSULE PO (00:51)
[2024-03-24] MEDS: Ibuprofen 600 MG TABLET PO (00:51)
[2024-03-24 00:59] VITALS: BP 101/50; PULSE 101; RESP 20; TEMP 38.6; O2SAT 99
== END 2024-03-24 01:00 | disposition home or self-care (01) ==
PROVIDERS: Physician Assistant Medical; Emergency Provider Emergency Medicine
DX: J10.1 Influenza due to other identified influenza virus with other respiratory manifestations (principal); R05.9 Cough, unspecified; Z03.818 Encounter for observation for suspected exposure to other biological agents ruled out
CPT/HCPCS: 0241U; 71045; 99283

== ENCOUNTER → 2024-03-23 18:26 | Outpatient (BNV) | payer MEDICAID, SELFPAY | PROVIDERS: Visit Provider Radiology Neuroradiology | DX: R05.9 Cough, unspecified (principal) | CPT/HCPCS: 71045 ==